=== PATIENT | female | born 1945 | race Caucasian/White ===

== ENCOUNTER 2018-01-02 09:15 | Emergency (ER) | payer MEDICARE, OTHER ==
[~2018-01-02] VITALS: Ht 160 cm; Wt 61.2 kg
[~2018-01-02 09:15] MED LIST: AMLODIPINE BES2.5 MG PO; ASPIRIN81 MG PO; NITROGLYCERIN0.4 MG SL; OMEPRAZOLE20 MG PO; PERCOCET 5-3251 EACH PO
[2018-01-02] MEDS ORDERED: METFORMIN HCL500 M1 PO (09:25)
[2018-01-02] MEDS ORDERED: LOSARTAN POTASS50 MG PO (09:26)
--- OUTSIDE RECORDS SUMMARY | 2018-01-02 09:57 | XMS | Clinical Summary ---
Demographics + + + | Address | [address] | | | [place] [address] | + + + | Home Phone | | + + + | Preferred Language | Unknown | + + + | Marital Status | | + + + | Mormon Affiliation | Unknown | + + + | Race | Unknown | + + + | Ethnic Group | Unknown | + + + Author + + + | Author | [facility] | | | and [place] | + + + | Organization | [facility] | | | and [place] | + + + | Address | Unknown | + + + | Phone | Unavailable | + + + Support + + +---------+ + | Name | Relationship | Address | Phone | + + +---------+ + | Leandra Stapleton | ECON | Unknown | | + + +---------+ + Care Team Providers + +------+ + | Care Assembler Brazer Name | Role | Phone | + +------+ + | Guillermo Del Toro MD | PP | | + +------+ + Allergies + + + + + + | Active Allergy | Reactions | Severity | Noted | Comments | | | | | Date | | + + + + + + | Dexamethasone | Other (See Comments) | Low | 03/30/20 | "Burning" | | | | | 17 | | + + + + + + | Erythromycin | Diarrhea, Nausea And | Low | | | | | Vomiting | | | | + + + + + + | Latex | Hives | High | 03/30/20 | | | | | | 17 | | + + + + + + Current Medications + + +-------+---------+------+------+-------+ | Prescription | Sig. | Disp. | Refills | Star | End | Statu | | | | | | t | Date | s | | | | | | Date | | | + + +-------+---------+------+------+-------+ | omeprazole | Take 20 mg by mouth | | | 05/15 | | Activ | | (PRILOSEC) 20 mg | Daily as needed. | | | 01/01 | | e | | TBEC | | | | 12 | | | + + +-------+---------+------+------+-------+ | nitroglycerin | 1 tablet by mouth | | | 05/15 | | Activ | | (NITRO-DUR) 0.4 | every 5 minutes as | | | 4/20 | | e | | mg/hr | needed | | | 12 | | | + + +-------+---------+------+------+-------+ | VENTOLIN HFA 108 | Inhale 2 puffs into | | | | | Activ | | (90 Base) MCG/ACT | the lungs every 4 | | | | | e | | inhaler | hours as needed for | | | | | | | | Wheezing or | | | | | | | | Shortness of Breath. | | | | | | + + +-------+---------+------+------+-------+ | metFORMIN | Take 500 mg by mouth | | | 03/15 | | Activ | | (GLUCOPHAGE-XR) 500 | daily (with | | | 5/20 | | e | | mg 24 hr tablet | breakfast). | | | 17 | | | + + +-------+---------+------+------+-------+ | losartan (COZAAR) | Take 50 mg by mouth | | | 07/2 | | Activ | | 50 mg tablet | Daily. | | | 5/20 | | e | | | | | | 17 | | | + + +-------+---------+------+------+-------+ | adult valved | Inhale into the | | | | | Activ | | holding chamber | lungs. Use for | | | | | e | | (AEROCHAMBER) MISC | inhaled medicines. | | | | | | + + +-------+---------+------+------+-------+ | fluticasone | Inhale 1 puff into | | | | | Activ | | (FLOVENT HFA) 220 | the lungs 2 times | | | | | e | | mcg/puff inhaler | daily. In order to | | | | | | | | prevent cough. | | | | | | + + +-------+---------+------+------+-------+ Active Problems + + + | Problem | Noted Date | + + + | COUGH | | + + + | INTERSTITIAL PNEUMONIA | | + + + | SHORTNESS OF BREATH | | + + + | PULMONARY EOSINOPHILIA | | + + + Immunizations + + + + | Name | Dates Previously Given | Next Due | + + + + | INFLUENZA 66 Y OR >, | 06/04/2017, 06/30/2016 | | | TRIVALENT HIGH-DOSE | | | + + + + | PNEUMOCOCCAL | 05/19/2016 | | | CONJUGATE 13-VALENT | | | | (PCV13) | | | + + + + | PNEUMOCOCCAL | 10/17/2010 | | | POLYSACCHARIDE | | | | 23-VALENT (PPSV23) | | | + + + + Family History + + +------+ + | Medical History | Relation | Name | Comments | + + +------+ + | No Known Problems | Father | | | + + +------+ + | Diabetes | Mother | | | + + +------+ + | Renal Failure | Mother | | | + + +------+ + + +------+ + + | Relation | Name | Status | Comments | + +------+ + + | Father | | Other | | + +------+ + + | Mother | | | | + +------+ + + Social History + +-------+ +--------+------+ | Tobacco Use | Types | Packs/Day | Years | Date | | | | | Used | | + +-------+ +--------+------+ | Never Smoker | | | | | + +-------+ +--------+------+ + +---+---+---+ | Smokeless Tobacco: | | | | | Never Used | | | | + +---+---+---+ + + | Tobacco Cessation: Counseling Given: No | + + + + +---------+ + | Alcohol Use | Drinks/We | oz/Week | Comments | | | ek | | | + + +---------+ + | Yes | | | | + + +---------+ + + + + | Sex Assigned at | Date Recorded | | | | + + + | Not on file | | + + + Last Filed Vital Signs + + + + | Vital Sign | Reading | Time Taken | + + + + | Blood Pressure | 140/72 | 06/04/2017 1308 PDT | + + + + | Pulse | 64 | 06/04/20178 PDT | + + + + | Temperature | 36.6 C (97.8 F) | 06/04/20171307 PDT | + + + + | Respiratory Rate | - | - | + + + + | Oxygen Saturation | 98% | 06/04/20171307 PDT | + + + + | Inhaled Oxygen | - | - | | Concentration | | | + + + + | Weight | 64.2 kg (141 lb 9.6 | 06/04/20171307 PDT | | | oz) | | + + + + | Height | 161.3 cm (5' 3.5") | 06/04/20171307 PDT | + + + + | Body Mass Index | 24.69 | 06/04/2017 1308 PDT | + + + + Plan of Treatment + + + + + | Health Maintenance | Due Date | Last Done | Comments | + + + + + | Hepatitis C | | | | | Screening | 6 | | | + + + + + | Vaccine: | | | | | Dtap/Tdap/Td (1 - | 5 | | | | Tdap) | | | | + + + + + | BREAST CANCER | | | | | SCREENING (MAMM Q2 | 6 | | | | YEARS 50-74) | | | | + + + + + | COLON CANCER | | | | | SCREENING | 6 | | | | (COLONOSCOPY EVERY | | | | | 10 YEARS 50-75) | | | | + + + + + | Vaccine: | | 05/19/2016, 10/17/2010 | | | Pneumococcal 65+ | 7 | | | | Low/Medium Risk (2 | | | | | of 2 - PPSV23) | | | | + + + + + | Vaccine: Influenza | Completed | 06/04/2017, 06/30/2016 | | + + + + + Results Not on filefrom Last 3 Months Insurance + +--------+ +--------+ +---------+ | Payer | Benefi | Subscriber | Type | Phone | Address | | | t Plan | ID | | | | | | / | | | | | | | Group | | | | | + +--------+ +--------+ +---------+ | MEDICARE | MEDICA | xxxxxxxxxx | Medica | [phone] | | | | RE | | re | [phone] | | | | PART A | | | | | | | AND B | | | | | + +--------+ +--------+ +---------+ | [employer] | TRANSA | xxxxxxxxx | Indemn | | | | INSURANCE | MERICA | | ity | | | | | LIFE | | | | | | | MS | | | | | + +--------+ +--------+ +---------+ + +--------+ +--------+ + + | Guarantor Name | Accoun | Relation to | Date | Phone | Billing Address | | | t Type | Patient | of | | | | | | | | | | + +--------+ +--------+ + + | ROHINI STAPLETON | Person | Self [birth year] Home: | [address] | | | al/Fam | | 1945 | [phone] | [place] [address] | | | fabricio | | | [phone] | | + +--------+ +--------+ + +
--- OUTSIDE RECORDS SUMMARY | 2018-01-02 09:57 | XMS | Clinical Summary ---
Demographics + + + | Address | [address] | | | [place] [address] | + + + | Home Phone | | + + + | Preferred Language | Unknown | + + + | Marital Status | | + + + | Oriental Orthodox Affiliation | Unknown | + + + | Race | Unknown | + + + | Ethnic Group | Unknown | + + + Author + + + | Author | [facility] | | | and [place] | + + + | Organization | [facility] | | | and [...] Team Providers + +------+ + | Care [employer] Labor Name | Role | Phone | + [...] Self | [birth year] | Home: | [address] | | | al/Fam | | 1945 | [phone] | [place] [address] | | | fabricio | | | [phone] | | + +--------+ +--------+ + +
[2018-01-02] MEDS ORDERED: NORCO 5-325 TA1 EACH PO (10:10)
== END 2018-01-02 10:18 | disposition home or self-care (01) ==
LOC: ED 09:15
DX: M77.9 Enthesopathy, unspecified (principal); Z88.1 Allergy status to other antibiotic agents; Z91.040 Latex allergy status; Z88.5 Allergy status to narcotic agent; Z88.8 Allergy status to other drugs, medicaments and biological substances; Z79.899 Other long term (current) drug therapy; Z79.84 Long term (current) use of oral hypoglycemic drugs
CPT/HCPCS: 73140; 96372; 99283; J1885

== ENCOUNTER 2018-10-11 07:25 | Day surgery (SDC) | payer MEDICARE, OTHER ==
[~2018-10-11] VITALS: Ht 161.3 cm; Wt 62.6 kg
[~2018-10-11 07:25] MED LIST changes: +CIPROFLOXACIN500 MG PO; +COZAAR50 MG PO; +DICYCLOMINE HCL10 MG PO; +IBUPROFEN600 MG PO; +LOSARTAN POTASS50 MG PO; +MAPAP325 MG PO; +METFORMIN HCL500 M1 PO; +METFORMIN HCL500 M3 PO; +METRONIDAZOLE250 MG PO; +NORCO 5-325 TA1 EACH PO; +PERCOCET 7.5-31 EACH PO; +PROTONIX40 MG PO; +ULTRAM50 MG PO; +ZOFRAN4 MG PO
--- NOTE | 2018-10-11 08:51 | NUR ---
10/11/18 0851 Daniella Colindres 0845- PT ARRIVES TO PACU AROUSABLE TO VOICE. PT REPORTS NO PAIN OR NAUSEA. RESP EVEN AND UNLABORED. OXYGEN SAT HIGH 90'S TO 100% ON 3L VIA NC. 0847- OXYGEN TURNED OFF. OXYGEN SAT MID 90'S ON RA. 0851- BLOOD SUGAR 129.
--- NOTE | 2018-10-14 12:01 | OR ---
[facility] [address] [place], [place] [address] Signed DATE OF OPERATION: 10/11/2018 SURGEON: Emily Hna MD PREOPERATIVE DIAGNOSIS: History of ischemic colitis in May 2018. POSTOPERATIVE DIAGNOSIS: Scarring at site of prior ischemic colitis, but without stricture (60-70 cm). PROCEDURE: Total colonoscopy to cecum with biopsy of colon. ANESTHESIA: Intravenous sedation, fentanyl 100 mcg, Versed 4 mg. INDICATION: This 73-year-old white woman was hospitalized by [place] in May of 2018, for ischemic colitis of the left colon. She was managed with hospitalization, intravenous fluids, antibiotics, and so forth, and has had good clinical recovery. She was admitted at this time to assess the colon for other pathology as well as assess the degree of scarring if any. The risks of bleeding, infection, and perforation related to colonoscopy reviewed. She understands and wished to proceed. FINDINGS: The prep was excellent. Complete colonoscopy was undertaken to the cecum. At approximately 60-70 cm from the anal verge was an area of trabeculation and scarring in the area of prior ischemic colitis. There was no sign of stricture however. There were no polyps and no signs of cancer. DESCRIPTION OF PROCEDURE: The patient was brought to the endoscopy suite and placed in lateral decubitus position given intravenous sedation to the point of slurred speech and nystagmus. Digital rectal examination was normal. An Olympus video colonoscope was passed in the rectum and manipulated throughout the colon ultimately intubating the cecum. The ileocecal valve and appendiceal orifice were normal. Scope was withdrawn from that point. Examination throughout undertaken showed no sign of abnormality until the area of prior ischemic colitis where a trabeculated scar pattern was noted. There was no actual stricture, only the scarring is noted. Electronically Signed By: EMILY HAN MD 10/14/18 1201 PATIENT NAME: MANOLO STAPLETON OPERATIVE REPORT DATE OF : 47 REPORT #: [id number] PHYSICIAN: EMILY HAN MD PCP: AINSLEY CERRATO PA-C REPORT IS CONFIDENTIAL AND NOT TO BE RELEASED WITHOUT AUTHORIZATION [facility] [address], [place] [address] Signed Biopsies were obtained showing firm fibrous tissue. Further withdrawal of scope showed no other abnormality. Retroflexed view was normal. The scope was removed and the patient was taken to recovery room in good condition. 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 PLAN: Expectant management at this point. If symptoms should occur related to obstruction, she will let me know. She will return to the ongoing care of Ainsley Cerrato PA-C. MD FANI Mark/LIZETTE /[id number] cc: Ainsley Cerrato PA-C Copies: AINSLEY CERRATO PA-C ~ Electronically Signed By: EMILY HAN MD 10/14/18 1201 PATIENT NAME: MANOLO STAPLETON OPERATIVE REPORT DATE OF : 47 REPORT #: [id number] PHYSICIAN: EMILY HAN MD PCP: AINSLEY CERRATO PA-C REPORT IS CONFIDENTIAL AND NOT TO BE RELEASED WITHOUT AUTHORIZATION
== END 2018-10-11 09:30 | disposition home or self-care (01) ==
LOC: OPS 07:25 → DS 08:30 → OPS 09:30
PROVIDERS: Surgery
PROC: 0DBE8ZX Excision of Large Intestine, Via Natural or Artificial Opening Endoscopic, Diagnostic (ICD-10-PCS; principal; 2018-10-11 08:30)
DX: K63.89 Other specified diseases of intestine (principal); I10 Essential (primary) hypertension; Z87.19 Personal history of other diseases of the digestive system; Z88.1 Allergy status to other antibiotic agents; Z91.041 Radiographic dye allergy status; Z88.8 Allergy status to other drugs, medicaments and biological substances; Z98.890 Other specified postprocedural states
CPT/HCPCS: 88305; 99153; G0500; J2250; J3010; J7120